=== PATIENT | female | born 1950 | race African-American/Black ===

== ENCOUNTER 2018-04-18 17:22 | Inpatient (IN) | payer MEDICARE, MEDICAID ==
[2018-04-18 18:16] VITALS: BP 138/61
[2018-04-19] MEDS: Hydrocodone/APAP 10 mg/325 mg Tab PO PRN (05:49)
[2018-04-19 06:28] LABS: % BASOPHILS 0.1 % (0.0-2.0); % EOSINOPHILS 2.7 % (0.0-5.0); % LYMPHOCYTES 13.4 % (20.0-50.0); % MONOCYTES 6.4 % (2.0-10.0); % NEUTROPHILS 77.4 % (40.0-80.0); EOSINOPHILE ABSOLUTE 0.2 Th/cmm (0.1-0.4); HEMATOCRIT 28.2 % (41.0-60); HEMOGLOBIN 9.4 gm/dL (12-16); LYMPHOCYTE ABSOLUTE 0.9 Th/cmm (1.5-3.0); MEAN CELL VOLUME 89.2 fl (81-100); MEAN CORPUSCULAR HEMOGLOBIN 29.7 pg (27.0-31.0); MEAN CORPUSCULAR HGB CONC 33.3 pg (28.0-36.0); MEAN PLATELET VOLUME 6.8 fl; MONOCYTE ABSOLUTE 0.4 Th/cmm (0.3-1.0); NEUTROPHILE ABSOLUTE 5.3 Th/cmm (1.8-8.0); PLATELET COUNT 245 Th/cmm (150-400); RED BLOOD COUNT 3.16 Mil/cmm (3.80-5.20); WHITE BLOOD COUNT 6.8 Th/cmm (4.8-10.8)
[2018-04-19 06:47] LABS: ALB/GLOB RATIO 1.1 (1.0-1.8); ALBUMIN 3.1 gm/dL (3.7-5.3); ALKALINE PHOSPHATASE 347 U/L (34-104); ANION GAP 11.8 (7.0-16.0); BILIRUBIN,TOTAL 0.8 mg/dL (0.3-1.0); BUN - UREA NITROGEN 10 mg/dL (7-25); CALCIUM SERUM 8.9 mg/dL (8.6-10.3); CHLORIDE 100 mEq/L (98-107); CREATININE - SERUM 0.4 mg/dL (0.6-1.2); GFR AFRICAN-AMERICAN > 60.0 ml/min (>90); GFR NON AFRICAN-AMERICAN > 60.0 ml/min; GLUCOSE 98 mg/dL (70-105); POTASSIUM SERUM 3.8 mEq/L (3.5-5.1); SGOT 128 U/L (13-39); SGPT/ALT 57 U/L (7-52); SODIUM SERUM 135 mEq/L (136-145)
--- NOTE | 2018-04-19 19:09 | Psychiatric Evaluation ---
DATE OF SERVICE: 04/19/2018 IDENTIFYING DATA: The patient is a 67-year-old -[place] woman living by herself. Information obtained by directly interviewing the patient as well as reviewing the admission paper. JUSTIFICATION FOR HOSPITALIZATION: The patient is admitted here on a 5150 as being gravely disabled. CHIEF COMPLAINT: "I don't know some transition social worker came to see me and then they decided that are deemed to be in the hospital." HISTORY OF PRESENT ILLNESS: This is the first psychiatric hospitalization to [facility] for this patient who is reported to have a long history of mental illness and has been stabilized on haloperidol 5 mg at bedtime. The patient is reporting that recently she had been diagnosed to have cancer and has three types of cancer, one is the breast cancer, second is the bone cancer and things have metastasis to liver. The patient is stating that she has been compliant with the medication. On the day of the hospitalization, the patient is reporting that transition social worker came to look at her and they evaluated that she is not able to care for herself and requested that the patient to be hospitalized. She states that she sees for a psychiatric followup and has been doing fairly well on Haldol. Sleep and appetite prior to the hospitalization are reported to be poor. PAST PSYCHIATRIC HISTORY: Please refer to the above. MEDICAL HISTORY: Physical examination is requested to be done by Dr. Stewart. SUBSTANCE ABUSE HISTORY: None. PHYSICAL OR SEXUAL ABUSE HISTORY: None. LEGAL PROBLEMS: None at this time. SOCIAL HISTORY: The patient is stating that she has two children, one in [place], other one is in [place], but she has no contact with them. STRENGTH AND ASSETS: The patient is motivated. MENTAL STATUS EXAMINATION: The patient is a 67-year-old, looking her stated age, superficially cooperative. Eye contact is fair. Mood is irritable. Affect is constricted. The patient's insight and judgment are noted to be fair at this time. Impulse control is also noted to be fair. The patient is stating that she needs to be on the medication that medication has helped her and she is stating that she has been trying to cope with the stress and then take care of the medical issues. The patient is alert and oriented x 3 and attention span and concentration are noted to be fair. Short and long-term memory also noted to be fair at this time. The patient has paranoia, but denies any command hallucinations. No visual hallucinations are reported. DIAGNOSTIC IMPRESSION: AXIS I: Psychotic disorder, not otherwise specified, history of schizophrenia, chronic paranoid type. AXIS II: None. AXIS III: As per Dr. Stewart. IMMEDIATE TREATMENT PLAN: The patient is going to be continued on her haloperidol and is going to be followed up with the supportive therapy. Once stabilized, the patient is going to be discharged to [facility] to be followed up on an outpatient basis. JOB# [id number]
[2018-04-20] MEDS ORDERED: Magnesium Hydroxide (MOM) 30 mL UDC PO PRN (08:06)
[2018-04-20] MEDS ORDERED: Maalox 30 mL Cup PO PRN (08:06)
[2018-04-20] MEDS: Multivitamin Tab PO SCH (09:02)
--- NOTE | 2018-04-20 11:38 | History & Physical ---
ADMIT DATE: 04/20/2018 PATIENT'S IDENTIFICATION: A 67-year-old female. CHIEF COMPLAINT: "Doctor I have cancer." HISTORY OF PRESENT ILLNESS: A 67-year-old female transferred from [place], [place] to [facility] for psychiatric treatment after the patient was noted by staff that patient was unable to take care of herself and she was without meal, without money, and there was nobody to take care of herself at home. When the patient was seen by [facility], the patient did have initial medical workup and subsequently the patient was transferred to [facility]. PAST MEDICAL HISTORY: Remarkable for breast cancer status post mastectomy with chronic lymphedema on the right upper extremity, also has history of DJD, osteoporosis, cataracts, recently treated for scabies. MEDICATIONS: Currently, patient is taking, which is Macrobid, ibuprofen, Haldol. ALLERGIES: The patient is allergic to not on any medications. SOCIAL HISTORY: The patient lives in [place]. The patient has history of smoking cigarette. No history of any alcohol abuse or any street drug use. FAMILY MEDICAL HISTORY: Remarkable for diabetes and heart disease. REVIEW OF SYSTEMS: The patient stated that she did have history of fall few days ago. She questionable one episode of transient vision loss without any residual effect. The patient denies any headache, double vision, dysphagia, chest pain, shortness of breath, palpitation, dizziness, nausea, vomiting, diarrhea, dysuria, hematuria, hematochezia, melena. No history of any seizure or syncopal episode. PHYSICAL EXAMINATION: GENERAL: The patient is alert, awake, oriented, lying in the bed without any acute distress. VITAL SIGNS: Temperature 98, pulse is 74, respiratory rate 18, blood pressure 136/80. HEENT: Normocephalic, atraumatic. Bilateral exophthalmus with cataract noted. Poor dentition noted. No facial asymmetry noted. NECK: Supple, no JVD, no hepatojugular reflex. No lymphadenopathy, thyromegaly, or carotid bruit. HEART: Both heart sounds are regular. No S3, no S4, no murmur. CHEST AND LUNGS: Equal in expansion, no expiratory wheezing. ABDOMEN: Soft. No guarding, no rigidity. Bowel sounds are present. No palpable mass. EXTREMITIES: Right upper extremity edema consistent with chronic lymphedema noted. NEUROLOGIC: Alert, awake, oriented without any acute distress, 2-12 cranial nerves intact. Power for lower extremity 5-. Sensation to touch intact. Babinski's, both toes are going down. No cerebral sign. AVAILABLE DIAGNOSTIC DATA: Hemoglobin 8.9, platelet count of 220. White count of 5.1, glucose of 114, albumin of 3.1, alkaline phosphatase of 403. AST of 83, ALT of 54. Urine was remarkable for moderate leukocyte esterase with trace ketones, bacteria were many. Chest x-ray negative for an infiltrate, no congestion. CT scan of the head was without any gross abnormality. CLINICAL IMPRESSIONS: 1. History of breast cancer status post mastectomy with right upper extremity edema consistent with chronic lymphedema. 2. Urinary tract infection. 3. Elevated alkaline phosphatase with slightly elevated AST, suspect secondary to metastatic disease per liver and bone. 4. Status post treatment for scabies. 5. Psychotic disorder. 6. Degenerative joint disease. 7. Developing cataract. PLAN: 1. Antibiotic. 2. Scraping for scabies. 3. Breast cancer management once the patient's psych treatment is treated. 4. Anemia of chronic inflammation. Does not need any acute intervention. 5. Fall precautions. 6. Nutritional support. 7. General nursing care. 8. Symptoms management. 9. Medication management. 10. Follow lab. 11. We will continue to follow this patient during the stay in the hospital. I sincerely thank you, Dr. Yusef Bojorquez, for giving me the opportunity to participate in patient of yours. JOB# [id number]
[2018-04-20 13:22] LABS: TISSUE KOH / SCABIES NEGATIVE FOR SCABIES
--- NOTE | 2018-04-20 20:56 | Consultation ---
DATE OF CONSULTATION: 04/20/2018 REFERRING PHYSICIAN: Neda Padron M.D. TYPE OF CONSULTATION: Psychology. HISTORY OF PRESENT ILLNESS: The patient is a 67-year-old -[place] female. The patient lives in her own home by herself. The following is by review of the medical record and by the patient's self report. The patient is being admitted on a 5150 hold for being gravely disabled. Record review indicates that the patient had been seen at home by a social security specialist who encouraged the patient to accept involuntary admission for psychiatric hospitalization. According to record review, the patient has a history of mental illness. The patient denied any suicidal ideation, plan or intention. The patient reports that the social security specialist evaluated her as not being able to care for herself. PAST MEDICAL HISTORY: Please see history and physical by Dr. Stewart. PAST PSYCHIATRIC HISTORY: The patient has a history of mental illness. It is unknown whether the patient is under the care of a psychiatrist and/or psychologist. It is unknown whether there have been any previous hospitalizations. SUBSTANCE ABUSE HISTORY: The patient denies any history. PSYCHOSOCIAL HISTORY: The patient lives at home by herself. The patient states she has two children that are estranged from her. One lives in [place] and the other in [place]. The patient states that she is a Sikh. The patient did not answer questions about occupational or educational history. The patient denies any history of physical or sexual abuse. The patient denies any current legal problems. MENTAL STATUS EXAMINATION: The patient appears to be her stated age. The patient's attitude is cooperative. Eye contact is fair. Speech is delayed, but coherent. Mood is irritable. Affect is constricted. The patient denied any auditory or visual hallucinations. The patient denied any suicidal ideation, plan or intention. Thought process appears to be confused and tangential. Impulse control is limited. Concentration is fair. Sensorium is alert and oriented x3. The patient's immediate and short term memory seemed to be functional. Long-term memory needs further evaluation. The patient did not participate in the interpretation of proverbs. Insight is poor and judgment is poor. DIAGNOSTIC IMPRESSION: AXIS I: 1. Provisional diagnosis of psychotic disorder, not otherwise specified. 2. History of schizophrenia, chronic paranoid type. AXIS II: Deferred. AXIS III: Per Dr. Stewart. PLAN: The patient has been seen by Dr. Padron for psychiatric evaluation and for the management of the patient's psychotropic medications. We will provide supportive psychotherapy to include reality orientation, differentiation, and integration. We will provide coping strategies for phase of life issues. We will provide motivational enhancement for the patient to become compliant with all aspects of her care, and treatment plan including demonstrating the ability and capacity to be able to thrive on her own. Case management will be involved with the admitting psychiatrist with respect to the patient's discharge. This creative services writer recommends a follow up with a psychiatrist and a psychologist on an outpatient basis if the patient is discharged to herself at home. Thank you, Dr. Padron, for this consult and the opportunity to participate in this patient's care. JOB# [id number]
--- NOTE | 2018-04-21 02:14 | Progress Notes ---
DATE: 04/20/2018 PSYCHIATRIC PROGRESS NOTE SUBJECTIVE: Staff was spoken to. The patient is interviewed. Mood is noted to be anxious. Affect is constricted. The patient has paranoid delusions, but denies any command hallucinations. The patient has been stating that she has been doing fairly well and following the doctor's orders and has been on Haldol all long. The patient has been pacing on the unit. No side effects to the medications are noted. The patient is complying with the medications so far. ASSESSMENT: The patient is paranoid and gravely disabled and awaiting placement. PLAN: To involve the correctional counselor/case manager with regards coordinating the care with the social work therapist on an outpatient basis and followup. JOB# [id number]
[2018-04-21] MEDS: Multivitamin Tab PO SCH (08:35)
--- NOTE | 2018-04-22 00:33 | Progress Notes ---
DATE: 04/21/2018 SUBJECTIVE: Staff was spoken to. The patient is interviewed. Mood is noted to be irritable. Affect is constricted. The patient has paranoia, but denies any command hallucinations. The patient is currently on 5 mg of the Haldol and has been able to tolerate the medications. The patient is very isolative and withdrawn today. ASSESSMENT: The patient is still psychotic and awaiting placement. PLAN: To continue the patient with the supportive therapy and encourage the patient to verbalize the concerns rather than to act out. JOB# [id number]
[2018-04-22] MEDS: Multivitamin Tab PO SCH (08:20)
--- NOTE | 2018-04-23 02:05 | Progress Notes ---
DATE: 04/22/2018 SUBJECTIVE: Staff was spoken to. The patient is interviewed. Mood is noted to be irritable. Affect is constricted. The patient has paranoid delusions. Coping skills are noted to be poor. The patient is very intrusive and is demanding that she should be discharged back to her apartment. The patient deleted the EPS report that has been on file and the patient is not able to care for self and case management rn has been looking and coordinating the care with the delinquency prevention social worker on an outpatient basis to see what can be done with regard to placement. JOB# [id number]
[2018-04-23] MEDS: Multivitamin Tab PO SCH (17:19)
--- NOTE | 2018-04-24 00:39 | Progress Notes ---
DATE: 04/23/2018 PSYCHIATRIC PROGRESS NOTE SUBJECTIVE: Staff was spoken to. The patient is interviewed. Mood is noted to be irritable. Affect is constricted. Coping skills are noted to be poor. The patient is isolated and withdrawn. Paranoid delusions are noted, but the patient denies any command hallucinations. The patient is currently on Haldol and is able to tolerate the medication. ASSESSMENT: The patient is still psychotic. PLAN: To continue the patient with the current medications and followup. JOB# [id number]
[2018-04-24] MEDS: Multivitamin Tab PO SCH (08:47)
--- NOTE | 2018-04-24 23:57 | Progress Notes ---
DATE: 04/24/2018 SUBJECTIVE: Staff was spoken to. The patient is interviewed. Mood is noted to be irritable. Affect is constricted. Insight and judgment at this time are noted to be impaired. Impulse control is noted to be limited. Coping skills are also noted to be limited. The patient has been having difficult time to cope with the stress. No side effects to the medications are noted. ASSESSMENT: The patient is still psychotic and awaiting placement. PLAN: To continue the patient with the supportive therapy and followup. [facility]# [id number]
[2018-04-25] MEDS: Multivitamin Tab PO SCH (09:09)
--- NOTE | 2018-04-25 23:04 | Progress Notes ---
DATE: 04/25/2018 SUBJECTIVE: The patient seen and examined. The patient is lying in the bed. Upon waking up, the patient denies any chest pain, increasing shortness of breath, palpitation, dizziness, nausea, or vomiting. OBJECTIVE: VITAL SIGNS: Temperature 98, pulse is 74, respiratory rate 18, blood pressure 130/70. HEENT: No facial asymmetry. NECK: Supple, no JVD. HEART: Regular. CHEST AND LUNGS: Equal in expansion, expiratory wheezing. ABDOMEN: Soft. No guarding or rigidity. EXTREMITIES: Right upper extremity edema noted with some chronic lymphedema. Her available medication admission record is reviewed. CLINICAL IMPRESSION: 1. History of breast cancer, status post mastectomy with chronic lymphedema. 2. Urinary tract infection. 3. Elevated alkaline phosphatase. Elevated AST, ALT, possible secondary to liver metastasis. 4. Skin rash, ruled out for scabies. PLAN: 1. Psychotic evaluation and management deferred to psychiatrist. 2. Complete the course of antibiotic for urinary tract infection. 3. No isolation for scabies. 4. Outpatient management for metastatic breast cancer. 5. Continue to provide general nursing care and fall precautions. 6. Care plan reviewed and discussed with staff. JOB# [id number]
--- NOTE | 2018-04-26 01:34 | Progress Notes ---
DATE: 04/25/2018 PSYCHIATRIC PROGRESS NOTE SUBJECTIVE: Staff was spoken to. The patient is interviewed. Mood is noted to be irritable. Affect is constricted. Insight and judgment are noted to be very much impaired. Impulse control is noted to be limited. Coping skills are noted to be limited. The patient has been having difficult time to cope with the stress. Paranoid delusions are noted. Staff are reporting that the patient is not able to care for self in view of the psychosis and there is an EPS report, they have been looking for placement for this patient, so far nothing is available. ASSESSMENT: The patient is still psychotic and awaiting placement. PLAN: To continue the patient with the supportive therapy, encouraged the patient to verbalize the concerns rather than to act out. JOB# [id number]
[2018-04-26] MEDS: Multivitamin Tab PO SCH (08:31)
--- NOTE | 2018-04-26 13:24 | Progress Notes ---
DATE: 04/26/2018 SUBJECTIVE: Staff was spoken to. The patient is interviewed. Mood is noted to be irritable. Affect is constricted. Coping skills are noted to be very poor. Sleep and appetite also noted to be poor. The patient has been having difficult time to cope with the stress, continues to be paranoid and the patient is currently on haloperidol and has been able to tolerate the medication and the patient is awaiting a clearance ____ before she can be returning to her place. The patient at this time is not able to be clear. ASSESSMENT: The patient is still psychotic and awaiting placement. PLAN: To continue the patient with the current medications and followup. JOB# [id number]
--- NOTE | 2018-04-26 20:09 | Progress Notes ---
DATE: 04/26/2018 SUBJECTIVE: The patient is seen and examined. The patient is lying in the bed. The patient is ambulating, dining herself, and watch TV per herself. The patient denies any chest pain or shortness of breath, palpitation, or dizziness. PHYSICAL EXAMINATION: VITAL SIGNS: Temperature 98.4, pulse 90, respiratory rate 20, blood pressure 118/42. HEENT: No facial asymmetry. NECK: Supple, no JVD. HEART: Regular. CHEST: Lung equal in expansion, no expiratory wheezing. ABDOMEN: Soft. No guarding, no rigidity. Bowel sounds present. No palpable mass. EXTREMITIES: With lymphedema on the right upper extremity noted. CLINICAL IMPRESSION: 1. Urinary tract infection. 2. Abnormal liver function test. 3. Metastatic breast cancer. Workup and treatment will be given as an outpatient. 4. Psychotic disorder. 5. Degenerative joint disease. 6. Right upper extremity lymphedema. PLAN: 1. Antibiotic. 2. Psychotic treatment. 3. Nutritional support. 4. Fall precautions. 5. General nursing care. 6. Follow up lab. 7. Care plan reviewed and discussed. JOB# [id number]
[2018-04-27] MEDS: Hydrocodone/APAP 10 mg/325 mg Tab PO PRN ×2 (01:15→09:42)
[2018-04-27 09:04] LABS: % BASOPHILS 0.1 % (0.0-2.0); % EOSINOPHILS 1.4 % (0.0-5.0); % LYMPHOCYTES 19.2 % (20.0-50.0); % MONOCYTES 5.7 % (2.0-10.0); % NEUTROPHILS 73.6 % (40.0-80.0); EOSINOPHILE ABSOLUTE 0.1 Th/cmm (0.1-0.4); HEMATOCRIT 26.8 % (41.0-60); HEMOGLOBIN 8.9 gm/dL (12-16); LYMPHOCYTE ABSOLUTE 1.4 Th/cmm (1.5-3.0); MEAN CELL VOLUME 90.4 fl (81-100); MEAN CORPUSCULAR HEMOGLOBIN 30.2 pg (27.0-31.0); MEAN CORPUSCULAR HGB CONC 33.4 pg (28.0-36.0); MEAN PLATELET VOLUME 6.7 fl; MONOCYTE ABSOLUTE 0.4 Th/cmm (0.3-1.0); NEUTROPHILE ABSOLUTE 5.4 Th/cmm (1.8-8.0); PLATELET COUNT 237 Th/cmm (150-400); RED BLOOD COUNT 2.96 Mil/cmm (3.80-5.20); RED CELL DISTRIBUTION WIDTH 20.2 % (11.5-20.0); WHITE BLOOD COUNT 7.3 Th/cmm (4.8-10.8)
[2018-04-27] MEDS: Multivitamin Tab PO SCH (09:43)
[2018-04-27 10:58] LABS: ALBUMIN 3.2 gm/dL (3.7-5.3); ANION GAP 12.8 (7.0-16.0); BUN - UREA NITROGEN 9 mg/dL (7-25); CALCIUM SERUM 9.9 mg/dL (8.6-10.3); CARBON DIOXIDE 27.6 mEq/L (21.0-31.0); CHLORIDE 99 mEq/L (98-107); CREATININE - SERUM 0.4 mg/dL (0.6-1.2); GFR AFRICAN-AMERICAN > 60.0 ml/min (>90); GFR NON AFRICAN-AMERICAN > 60.0 ml/min; POTASSIUM SERUM 3.4 mEq/L (3.5-5.1); SGOT 76 U/L (13-39); SGPT/ALT 58 U/L (7-52); SODIUM SERUM 136 mEq/L (136-145); TOTAL PROTEIN,SERUM 6.5 gm/dL (6.0-8.3)
[2018-04-27 11:49] LABS: BILIRUBIN,TOTAL 0.8 mg/dL (0.3-1.0); GLUCOSE 136 mg/dL (70-105)
[2018-04-27 12:16] LABS: ALKALINE PHOSPHATASE 597 U/L (34-104)
--- NOTE | 2018-04-27 17:34 | Progress Notes ---
DATE: 04/27/2018 SUBJECTIVE: Staff was spoken to. The patient is interviewed. Mood is noted to be irritable. Affect is constricted. Coping skills are noted to be still poor. The patient has paranoid delusions. latex foam worker has been working with the APS workers with regards clearing the patient to return. The patient has no place to at this time. . The patient continues to be paranoid; however, has been able to tolerate the Haldol. PLAN: To continue the patient with the current medications and followup. JOB# [id number]
[2018-04-28] MEDS: Multivitamin Tab PO SCH (08:28)
--- NOTE | 2018-04-28 09:37 | Progress Notes ---
DATE: SUBJECTIVE: The patient was seen and examined. PHYSICAL EXAMINATION: GENERAL: The patient is sitting in the chair. The patient denies any chest pain, shortness of breath, palpitation, dizziness, nausea, or vomiting. VITAL SIGNS: Temperature 98.2, pulse 90, respiratory 18, and blood pressure 130/60. HEENT: No facial asymmetry. NECK: Supple, no JVD. HEART: Regular. CHEST: Equal in expansion, no expiratory wheezing. ABDOMEN: Soft. No guarding, no rigidity. Bowel sounds are present. No palpable mass. EXTREMITIES: No edema. CLINICAL IMPRESSION: 1. Urinary tract infection, currently on antibiotic. 2. Abnormal liver function test with elevated alkaline phosphatase of 597. 3. Metastatic breast cancer. 4. Metastasis to liver. 5. Degenerative joint disease. 6. Psychiatric disorder. PLAN: In the view of increasing alkaline phosphatase, abdominal ultrasound will be done as well. Continue Macrobid along with other medication as the patient is receiving. Psychiatric evaluation and management deferred to psychiatrist. Nutritional support as well as fall precautions. Care plan reviewed and discussed. JOB# [id number]
--- NOTE | 2018-04-28 21:03 | Progress Notes ---
DATE: 04/28/2018 SUBJECTIVE: Staff was spoken to. The patient is interviewed. Mood is noted to be irritable. Affect is constricted. The patient is getting easily frustrated. The patient is stating that her place, is clean and neat. There is no reason for them to keep her here and case picker has been spoken to and she is stating that she has been trying to contact the [facility] work and clear for the patient to be returning over there or look for a placement. ASSESSMENT: The patient's paranoia is resolving. PLAN: To continue the patient with the supportive therapy and await for placement. JOB# [id number]
--- NOTE | 2018-04-29 09:05 | Diagnostic Imaging Report ---
Ultrasound abdomen HISTORY: Abnormal liver function test COMPARISON: None Technique: Sonography of the abdomen was performed in multiple planes. FINDINGS: There are multiple hypoechoic lesions throughout the liver. There is also a hepatic cyst measuring 4.0 x 3.4 cm. The largest of these lesions measures 10.8 x 6.3 cm. The liver measures 16.7 cm. No evidence of gallstones or gallbladder wall thickening. The common bile duct measures 5 mm. Evaluation of the pancreas is limited due to bowel gas. The right kidney measures 11.3 x 3.8 cm. No evidence of focal lesions or hydronephrosis. The left kidney measures 11.0 x 5.1 cm. There is a left renal sonolucent lesion is seen with internal echoes. This lesion measures 1.9 x 1.7 cm. The spleen measures 8.9 cm. The visualized portion of the abdominal aorta within normal limits in size. IMPRESSION: Numerous ill-defined hepatic masses. Findings may be due to underlying metastatic disease. Recommend further assessment with CT abdomen and pelvis without and with IV contrast, preferably, liver mass protocol. 1.9 x 1.7 cm left renal lesion probably a cyst with internal echoes which may related to hemorrhagic or proteinaceous components.
[2018-04-29] MEDS: Multivitamin Tab PO SCH (09:29)
--- NOTE | 2018-04-29 16:16 | Progress Notes ---
DATE: 04/29/2018 SUBJECTIVE: The patient seen and examined. The patient is lying in the bed. The patient is ambulatory. Abdominal ultrasound did reveal the patient had a multiple ill-defined hepatic mass consistent with metastatic disease. The patient's AST and ALT has been elevated of 7658 and 597. No evidence of any hemodynamic instability. PHYSICAL EXAMINATION: VITAL SIGNS: Temperature 98, pulse is 84, respiratory rate 18, and blood pressure 111/66. HEENT: No facial asymmetry. NECK: Supple, no JVD. HEART: Regular. CHEST AND LUNGS: Equal in expansion, no expiratory wheezing. ABDOMEN: Soft, no guarding or rigidity. Bowel sounds present. No palpable mass. EXTREMITIES: Lymphedema noted. CLINICAL IMPRESSION: 1. Metastatic breast cancer. 2. Multiple liver metastasis with abnormal liver function test. 3. Degenerative joint disease. 4. Psychotic disorder. 5. Urinary tract infection. PLAN: In the view of metastatic liver disease, abnormal liver function tests, we will check ammonia level along with the followup lab. We will discontinue Macrobid for now. Continue psychiatric medications and management as per psychiatrist. We will continue to follow this patient during the stay in the hospital. JOB# [id number]
--- NOTE | 2018-04-30 00:24 | Progress Notes ---
DATE: 04/29/2018 SUBJECTIVE: Staff was spoken to. The patient is interviewed. Mood is noted to be irritable. Affect is constricted. Coping skills are noted to be still poor. Insight and judgment are noted to be limited. The patient has been having difficult time to cope with the stress. No side effects to the medications are noted. The patient is currently on Haldol and has been able to tolerate the medication. ASSESSMENT: The patient is still psychotic and gravely disabled. it risk and assurance manager start looking for placement for this patient, but so far none is available. PLAN: To continue the patient with the supportive therapy, encouraged the patient to verbalize the concerns rather than to act out. JOB# [id number]
[2018-04-30 09:28] LABS: % BASOPHILS 0.2 % (0.0-2.0); % LYMPHOCYTES 16.3 % (20.0-50.0); % NEUTROPHILS 75.5 % (40.0-80.0); EOSINOPHILE ABSOLUTE 0.1 Th/cmm (0.1-0.4); HEMATOCRIT 25.8 % (41.0-60); HEMOGLOBIN 8.6 gm/dL (12-16); LYMPHOCYTE ABSOLUTE 1.1 Th/cmm (1.5-3.0); MEAN CELL VOLUME 90.8 fl (81-100); MEAN CORPUSCULAR HEMOGLOBIN 30.1 pg (27.0-31.0); MEAN CORPUSCULAR HGB CONC 33.1 pg (28.0-36.0); MEAN PLATELET VOLUME 6.7 fl; MONOCYTE ABSOLUTE 0.4 Th/cmm (0.3-1.0); NEUTROPHILE ABSOLUTE 5.2 Th/cmm (1.8-8.0); PLATELET COUNT 283 Th/cmm (150-400); RED BLOOD COUNT 2.84 Mil/cmm (3.80-5.20); WHITE BLOOD COUNT 6.8 Th/cmm (4.8-10.8)
[2018-04-30] MEDS: Multivitamin Tab PO SCH (09:53)
[2018-04-30 10:05] LABS: ALB/GLOB RATIO 1.1 (1.0-1.8); ALBUMIN 3.3 gm/dL (3.7-5.3); ALKALINE PHOSPHATASE 630 U/L (34-104); ANION GAP 12.9 (7.0-16.0); BILIRUBIN,TOTAL 0.5 mg/dL (0.3-1.0); BUN - UREA NITROGEN 12 mg/dL (7-25); CALCIUM SERUM 9.6 mg/dL (8.6-10.3); CARBON DIOXIDE 28.4 mEq/L (21.0-31.0); CHLORIDE 100 mEq/L (98-107); CREATININE - SERUM 0.5 mg/dL (0.6-1.2); GFR AFRICAN-AMERICAN > 60.0 ml/min (>90); GFR NON AFRICAN-AMERICAN > 60.0 ml/min; GLUCOSE 177 mg/dL (70-105); POTASSIUM SERUM 3.3 mEq/L (3.5-5.1); SGOT 96 U/L (13-39); SGPT/ALT 64 U/L (7-52); SODIUM SERUM 138 mEq/L (136-145); TOTAL PROTEIN,SERUM 6.4 gm/dL (6.0-8.3)
[2018-04-30] MEDS ORDERED: Potassium Chloride 20 mEq ER Tab PO ONE (10:57)
--- NOTE | 2018-04-30 16:40 | Progress Notes ---
DATE: 04/30/2018 SUBJECTIVE: Staff was spoken to. The patient is interviewed. Mood is noted to be irritable. Affect is constricted. The patient is stating that she has her own place and she does not believe that people have been making these kind of allegations that she is not able to care for herself. The patient is currently on Haldol and has been able to tolerate the medications. No side effects to the medications are noted. ASSESSMENT AND PLAN: The patient's psychosis resolving and we are going to be working with the director case management to communicate with the EPS workers and look for possible discharge of the patient or a placement of the patient. JOB# [id number]
--- NOTE | 2018-05-01 08:15 | Progress Notes ---
DATE: 04/30/2018 SUBJECTIVE: The patient is seen and examined. No new event. Abdominal ultrasound consistent with metastatic breast cancer. The patient has a followup lab, noted to have potassium of 3.3, hemoglobin of 8.6. AST, ALT and alkaline phosphatase is 690, 664 and 630 respectively. PHYSICAL EXAMINATION: GENERAL: The patient is otherwise asymptomatic. VITAL SIGNS: Temperature 98.6, pulse 99, respiratory rate is 28, blood pressure 130/70. HEENT: No facial asymmetry. NECK: Supple, no JVD. HEART: Regular. LUNGS: Clear. ABDOMEN: Soft. EXTREMITIES: Right upper extremity lymphedema noted. CLINICAL IMPRESSION: 1. Hypokalemia. 2. Liver mets. 3. Psychotic disorder. 4. Degenerative joint disease. 5. Normocytic normochromic anemia secondary anemia of chronic disease. 6. Psychotic disorder. PLAN: 1. Replace potassium. 2. Monitor labs. 3. Outpatient workup and management for her metastatic breast cancer. 4. Psychotic disorder. Management deferred to psychiatrist. 5. We will continue to follow this patient during the stay in the hospital. 6. Care plan reviewed. JOB# [id number]
[2018-05-01] MEDS: Multivitamin Tab PO SCH (08:58)
--- NOTE | 2018-05-02 05:23 | Progress Notes ---
DATE: 05/01/2018 SUBJECTIVE: Staff was spoken to. The patient is interviewed. Mood is noted to be irritable. Affect is constricted. The patient is stating that she prefers to go to a motel rather than to a long term facility. The patient is accepted at the [facility] and the patient is going to be discharged. The patient has been, however, resistant to comply. The discharge planning, stating that she needs to rather go to a hotel. ASSESSMENT: The patient is stabilizing. PLAN: To discharge the patient today for followup on outpatient basis. JOB# [id number]
== END 2018-05-01 16:57 | DRG 885 ==
LOC: GERO 17:22
DX: F29 Unspecified psychosis not due to a substance or known physiological condition (principal); N39.0 Urinary tract infection, site not specified; C78.7 Secondary malignant neoplasm of liver and intrahepatic bile duct; M19.90 Unspecified osteoarthritis, unspecified site; H26.9 Unspecified cataract; M81.0 Age-related osteoporosis without current pathological fracture; R21 Rash and other nonspecific skin eruption; E87.6 Hypokalemia; D63.8 Anemia in other chronic diseases classified elsewhere; Z85.3 Personal history of malignant neoplasm of breast; Z88.0 Allergy status to penicillin; Z90.10 Acquired absence of unspecified breast and nipple
CPT/HCPCS: 36415-UA; 76700-TC; 80053-TC; 80164-TC; 82140-TC; 85025-TC; 87220-90; J2060; Z7610